=== PATIENT | male | born 1970 | race Two or more races ===

== ENCOUNTER 2020-11-22 08:25 | Outpatient (CLI) | payer OTHER | END 2020-11-22 08:43 | disposition home or self-care (01) | LOC: TOM 08:25 | PROVIDERS: ATTEND Urology | DX: N40.0 Benign prostatic hyperplasia without lower urinary tract symptoms (principal); N28.1 Cyst of kidney, acquired; R31.0 Gross hematuria ==

== ENCOUNTER 2023-10-09 07:20 | Inpatient (IN) | payer OTHER ==
[2023-09-28 08:50] LABS: HEMATOCRIT 43.2 % (39.0-48.0); HEMOGLOBIN 14.9 g/dL (13-16.00); MEAN CELL VOLUME 77.5 fL (80.0-100.00); MEAN CORPUSCULAR HEMOGLOBIN 26.7 pg (27.00-32.0); MEAN CORPUSCULAR HGB CONC 34.5 g/dl (32.0-36.0); PLATELET COUNT 323 K/uL (150-450); RED BLOOD COUNT 5.57 M/uL (4.00-6.00); RED CELL DISTRIBUTION WIDTH 14.7 % (11.5-14.5)
[2023-09-28 09:05] LABS: INR 1.05
[2023-09-28 09:29] LABS: CALCIUM 9.9 mg/dL (8.5-10.1); CREATININE SERUM 1.03 mg/dL (0.70-1.30); GFR 75.54; POTASSIUM 4.42 mEq/L (3.5-5.1)
[2023-09-28 09:53] LABS: URINE APPEARANCE Clear; URINE BILIRRUBIN Negative (NEGATIVE); URINE BLOOD Negative; URINE COLOR Yellow; URINE GLUCOSE Negative (NEGATIVE); URINE LEUKOCYTE Negative; URINE NITRATE Negative; URINE PROTEIN Negative (NEGATIVE); URINE UROBILINOGEN 0.2 E.U./dl
[2023-09-28 10:20] LABS: URINE RBC 0.7 uL (0.0-20.8)
[2023-09-28 10:21] LABS: URINE BACTERIA 0 uL (0.0-1933); URINE EPITHELIAL CELLS 0.1 uL (0.0-38.8); URINE WBC 0.5 uL (0.0-23.2)
[~2023-10-09] VITALS: Ht 167.6 cm; Wt 88.5 kg
[~2023-10-09 07:20] MED LIST: AVALIDE 300-121 EACH PO; FLONASE16 GM; ZYRTEC10 M3 PO
[2023-10-09] MEDS ORDERED: GENTAMICIN SULFATE 40 MG/ML VIAL ONE (13:41)
[2023-10-09] MEDS ORDERED: GENTAMICIN SULFATE 40 MG/ML VIAL IV ONE (14:15)
[2023-10-09] MEDS ORDERED: ONDANSETRON HCL 2 MG/ML VIAL IV PRN (15:30)
[2023-10-09] MEDS ORDERED: ACETAMINOPHEN WITH CODEINE 1 UDTAB TABLET PO PRN (15:30)
[2023-10-09] MEDS ORDERED: PHENAZOPYRIDINE HCL 100 MG TABLET PO ONE (16:24)
[2023-10-09] MEDS ORDERED: PHENAZOPYRIDINE HCL 100 MG TABLET PO SCH (17:00)
[2023-10-10] MEDS ORDERED: TAMSULOSIN HCL 0.4 MG CAP PO SCH (09:00)
[2023-10-10] MEDS ORDERED: GENTAMICIN SULFATE 40 MG/ML VIAL IV SCH (09:00)
== END 2023-10-10 14:03 | disposition home or self-care (01) | DRG 714 ==
LOC: CIR.AMB 07:20 → SURH 15:48
PROVIDERS: ADMIT Urology; ATTEND Urology
PROC: 0VT08ZZ Resection of Prostate, Via Natural or Artificial Opening Endoscopic (ICD-10-PCS; principal; 2023-10-09 13:00)
DX: N40.1 Benign prostatic hyperplasia with lower urinary tract symptoms (principal); R33.8 Other retention of urine; Z20.822 Contact with and (suspected) exposure to COVID-19